=== PATIENT | male | born 1990 | race Caucasian/White ===

== ENCOUNTER 2018-09-03 16:57 | Emergency (ER) | payer BC, OTHER ==
[2018-09-03 17:21] VITALS: BP 131/77
--- NOTE | 2018-09-03 17:26 | UC ---
Knee Pain HPI - HPI Summary HPI Summary: C/O 2 days of medial right knee pain. No injury/ overuse. - History of Current Complaint Stated Complaint: RIGHT KNEE PAIN Time Seen by Provider: 09/03/18 17:16 Hx Obtained From: Patient Onset/Duration: Sudden Onset, Lasting Days - 2, Still Present Severity Initially: Mild Severity Currently: Mild Character: Sharp Aggravating Factor(s): Movement - getting up from a chair seems to aggrevate the most. Alleviating Factor(s): Position Associated Signs And Symptoms: Positive: Negative Able to Bear Weight: Yes - Allergies/Home Medications Allergies/Adverse Reactions: Allergies Allergy/AdvReac Type Severity Reaction Status Date / Time No Known Allergies Allergy Verified 09/03/18 17:16 Home Medications: Home Medications Cetirizine HCl [Zyrtec] 10 mg PO BEDTIME 09/03/18 [History Confirmed 09/03/18] PMH/Surg Hx/FS Hx/Imm Hx Previously Healthy: Yes - Family History Known Family History: Negative: Hypertension - Social History Occupation: Student Lives: Dormitory/Roommates Smoking Status (MU): Never Smoked Tobacco Review of Systems All Other Systems Reviewed And Are Negative: Yes Musculoskeletal: Positive: Arthralgia - right knee Physical Exam Triage Information Reviewed: Yes Appearance: Well-Appearing, No Pain Distress, Well-Nourished Vital Signs Reviewed: Yes Neck exam: Normal Respiratory Exam: Normal Cardiovascular Exam: Normal Musculoskeletal Exam: Normal Musculoskeletal: Positive: Other: - minimal point tenderness on the medial posterior patellar tendon. Neurological Exam: Normal Psychological Exam: Normal Skin Exam: Normal Knee Pain Course/Dx - Differential Dx/Diagnosis Differential Diagnosis/HQI/PQRI: Abrasion, Bursitis, Sprain, Strain, Tendonitis Provider Diagnosis: Infrapatellar bursitis of right knee Discharge - Sign-Out/Discharge Documenting (check all that apply): Patient Departure All imaging exams completed and their final reports reviewed: No Studies - Discharge Plan Condition: Stable Disposition: HOME Patient Education Materials: Knee Pain (ED) Referrals: Jose Maria Chou MD [Primary Care Provider] - Additional Instructions: Consider PT if pain persists. Preventative treatment would include strengthening and stretching, including Yoga. - Billing Disposition and Condition Condition: STABLE Disposition: Home
== END 2018-09-03 17:58 | disposition home or self-care (01) ==
LOC: UCCORT 16:57
DX: M70.41 Prepatellar bursitis, right knee (principal)
CPT/HCPCS: 99211; G0463